=== PATIENT | female | born 1980 | race Caucasian/White ===

== ENCOUNTER 2023-11-15 08:47 | Day surgery (SDC) | payer BC ==
[~2023-11-15] VITALS: Ht 152.4 cm; Wt 72.1 kg
[2023-11-15] VITALS (13 sets, daily range): BP systolic 65–108; BP diastolic 16–68; PULSE 61–86; RESP 16–18
[~2023-11-15 08:47] MED LIST: IBUP1TAB76 PO
[2023-11-15] MEDS ORDERED: 0.9%NACL 1000ML 1,000 ML IV ONE ×2 (09:00→09:28)
[2023-11-15] MEDS ORDERED: PROPOFOL 10 MG/ML 20ML VIAL IV ONE ×2 (10:20→10:34)
[2023-11-15] MEDS ORDERED: LIDOCAINE PF 100MG/5ML (2%) SYRINGE 5ML ONE (10:21)
== END 2023-11-15 11:50 | disposition home or self-care (01) ==
LOC: ENDO 08:47 → DAH 08:47 → ENDO 11:50
PROVIDERS: ATTEND Surgery
DX: C20 Malignant neoplasm of rectum (principal); K63.5 Polyp of colon; F17.210 Nicotine dependence, cigarettes, uncomplicated; Z79.899 Other long term (current) drug therapy; Z80.0 Family history of malignant neoplasm of digestive organs; Z72.89 Other problems related to lifestyle; Z93.3 Colostomy status
CPT/HCPCS: 84703; 36415; 44389; J7030 ×3; J2001; J2704 ×2; A4620; A4215 ×2; A4223; A7002; A4222; A4221; A4663; A4216; A4606; J3490